=== PATIENT | female | born 1990 | race Caucasian/White ===

== ENCOUNTER 2020-02-10 14:20 | Emergency (ER) | payer BC, OTHER ==
[~2020-02-10 14:20] MED LIST: BACTRIM DS TAB1 EACH PO
[2020-02-10] MEDS ORDERED: PYRIDIUM200 MG PO ×2 (16:38→16:48)
[2020-02-10] MEDS ORDERED: BACTRIM DS TAB1 EACH PO ×2 (16:38→16:48)
== END 2020-02-10 16:45 | disposition home or self-care (01) ==
LOC: ER1 14:20
DX: N39.0 Urinary tract infection, site not specified (principal); J34.0 Abscess, furuncle and carbuncle of nose; F17.210 Nicotine dependence, cigarettes, uncomplicated; Z88.0 Allergy status to penicillin; Z98.890 Other specified postprocedural states; Z97.5 Presence of (intrauterine) contraceptive device
CPT/HCPCS: 81001; 99283

== ENCOUNTER 2020-05-18 00:49 | Emergency (ER) | payer BC, OTHER ==
[~2020-05-18 00:49] MED LIST changes: +PYRIDIUM200 MG PO
[2020-05-18 01:31] LABS: BUN/CREATININE RATIO 22 (0-10)
[2020-05-18 02:12] LABS: HEMOGLOBIN 13.1 gm/dl (12.3-15.3); RED BLOOD COUNT 4.39 M/UL (4.00-5.10); WHITE BLOOD COUNT 13.8 K/UL (4.5-11.0)
== END 2020-05-18 05:10 | disposition home or self-care (01) ==
LOC: ER1 00:49
PROVIDERS: Emergency Medicine
DX: T42.4X1A Poisoning by benzodiazepines, accidental (unintentional), initial encounter (principal); T40.491A Poisoning by other synthetic narcotics, accidental (unintentional), initial encounter; Z88.0 Allergy status to penicillin
CPT/HCPCS: 51701; 70450; 80053; 80307; 84703; 85025; 93005; 99285; G0480

== ENCOUNTER 2021-02-28 03:16 | Emergency (ER) | payer OTHER ==
[2021-02-28 06:08] LABS: HEMOGLOBIN 13.1 gm/dl (12.3-15.3); RED BLOOD COUNT 4.19 M/UL (4.00-5.10); WHITE BLOOD COUNT 13.6 K/UL (4.5-11.0)
[2021-02-28 06:37] LABS: BUN/CREATININE RATIO 20 (0-10)
[2021-02-28] MEDS ORDERED: CEPHALEXIN500 MG PO (08:31)
[2021-02-28] MEDS ORDERED: BACTRIM DS TAB1 EACH PO (08:31)
== END 2021-02-28 08:40 | disposition home or self-care (01) ==
LOC: ER1 03:16
PROVIDERS: Physician Assistant
DX: L03.311 Cellulitis of abdominal wall (principal); F17.210 Nicotine dependence, cigarettes, uncomplicated; Z88.0 Allergy status to penicillin
CPT/HCPCS: 80053; 83605; 85025; 85652; 86140; 87040; 87070; 87077; 87205; 96365; 96366; 99284; J3370; J7030; Q9967

== ENCOUNTER 2021-03-06 02:49 | Emergency (ER) | payer OTHER ==
[~2021-03-06 02:49] MED LIST changes: +CEPHALEXIN500 MG PO
== END 2021-03-06 03:10 | disposition left against medical advice (07) ==
LOC: ER1 02:49
DX: Z53.21 Procedure and treatment not carried out due to patient leaving prior to being seen by health care provider (principal)

== ENCOUNTER 2021-03-06 03:36 | Emergency (ER) | payer OTHER | END 2021-03-06 04:00 | disposition home or self-care (01) | LOC: ER1 03:36 | DX: L02.211 Cutaneous abscess of abdominal wall (principal); F17.200 Nicotine dependence, unspecified, uncomplicated; Z88.0 Allergy status to penicillin | CPT/HCPCS: 99282 ==

== ENCOUNTER 2021-04-25 04:59 | Emergency (ER) | payer OTHER ==
[2021-04-25] MEDS ORDERED: BACTRIM DS TAB1 EACH PO (07:58)
== END 2021-04-25 08:05 | disposition home or self-care (01) ==
LOC: ER1 04:59
PROVIDERS: Emergency Medicine
DX: J02.9 Acute pharyngitis, unspecified (principal); F17.200 Nicotine dependence, unspecified, uncomplicated; Z88.0 Allergy status to penicillin
CPT/HCPCS: 80307; 81001; 84703; 87081; 87880; 99283

== ENCOUNTER 2021-09-01 21:32 | Emergency (ER) | payer OTHER ==
[~2021-09-01] VITALS: Ht 160 cm; Wt 68.0 kg
[2021-09-01 23:40] LABS: HEMOGLOBIN 12.8 gm/dl (12.3-15.3); RED BLOOD COUNT 4.45 M/UL (4.00-5.10); WHITE BLOOD COUNT 26.8 K/UL (4.5-11.0)
[2021-09-01 23:58] LABS: BUN/CREATININE RATIO 17 (0-10)
[2021-09-02] MEDS ORDERED: QUETIAPINE FUMA25 MG PO (14:21)
[2021-09-02] MEDS ORDERED: TRAZODONE HCL150 MG PO (14:23)
[2021-09-02] MEDS ORDERED: SERTRALINE HCL100 MG PO (14:23)
[2021-09-03] MEDS ORDERED: AMOX TR-K CLV1 EAC4 PO (10:45)
[2021-09-03] MEDS ORDERED: ZYVOX600 MG PO (10:45)
== END 2021-09-02 06:16 | disposition home or self-care (01) ==
LOC: ER1 21:32 → CDU 09-02 01:45 → ER1 09-02 01:45
PROVIDERS: Emergency Medicine
DX: L03.113 Cellulitis of right upper limb (principal); R00.0 Tachycardia, unspecified; F17.210 Nicotine dependence, cigarettes, uncomplicated; Z86.19 Personal history of other infectious and parasitic diseases; Z88.0 Allergy status to penicillin
CPT/HCPCS: 73201; 80053; 81001; 83605; 84703; 85025; 87040; 99284; J3370; J7070; Q9967

== ENCOUNTER 2021-09-02 07:05 | Inpatient (IN) | payer OTHER ==
[~2021-09-02] VITALS: Ht 160 cm; Wt 72.6 kg
[2021-09-02] MEDS ORDERED: QUETIAPINE FUMA25 MG PO (14:21)
[2021-09-02] MEDS ORDERED: TRAZODONE HCL150 MG PO (14:23)
[2021-09-02] MEDS ORDERED: SERTRALINE HCL100 MG PO (14:23)
--- NOTE | 2021-09-03 04:16 | NUR ---
PT STATES HER AND HER BOYFRIEND ARE GOING OUT TO CAR TO GET HER CONDITIONER TO TAKE A SHOWER.
[2021-09-03 06:38] LABS: HEMOGLOBIN 11.5 gm/dl (12.3-15.3); RED BLOOD COUNT 4.18 M/UL (4.00-5.10)
[2021-09-03 06:43] LABS: WHITE BLOOD COUNT 17.7 K/UL (4.5-11.0)
[2021-09-03 07:00] LABS: BUN/CREATININE RATIO 13 (0-10)
[2021-09-03] MEDS ORDERED: ZYVOX600 MG PO (10:45)
[2021-09-03] MEDS ORDERED: AMOX TR-K CLV1 EAC4 PO (10:45)
[2021-09-04 05:40] LABS: HEMOGLOBIN 12.1 gm/dl (12.3-15.3); RED BLOOD COUNT 4.34 M/UL (4.00-5.10); WHITE BLOOD COUNT 15.4 K/UL (4.5-11.0)
[2021-09-04 05:59] LABS: BUN/CREATININE RATIO 12 (0-10)
--- NOTE | 2021-09-05 23:36 | NUR ---
09/05/21 @715pm patientis alert and oriented she did not appear to be in any acute distress requested pain meds ,I informed her they were due at 830pm. 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 not back before midnight to remove her from surgery schedule. Notified Dr Pena, informed [place] Of Dr Fournier order.[id number] Pt emergeny contact called back stated that he has been at work and has not talked to her since about 6pm but that he would try to reach her,[place] notifed Ramone gomes
== END 2021-09-05 23:15 | disposition left against medical advice (07) | DRG 872 ==
LOC: ER1 07:05 → CDU 08:43 → MED SURG 4 08:43
PROVIDERS: Internal Medicine; Physician Assistant Medical; ADMIT Internal Medicine
DX: A41.9 Sepsis, unspecified organism (principal); L03.113 Cellulitis of right upper limb; L02.413 Cutaneous abscess of right upper limb; Z20.822 Contact with and (suspected) exposure to COVID-19; F19.10 Other psychoactive substance abuse, uncomplicated; B19.20 Unspecified viral hepatitis C without hepatic coma; Z53.21 Procedure and treatment not carried out due to patient leaving prior to being seen by health care provider; Z91.14 Patient's other noncompliance with medication regimen
CPT/HCPCS: 36415; 80048; 80202; 83735; 85027; 93971; 99284; J1335; J2270; J3370; J7070